=== PATIENT | female | born 1990 | race Hispanic/Latino ===

== ENCOUNTER 2018-06-09 12:33 | Emergency (ER) | payer OTHER ==
--- NOTE | 2018-06-09 12:44 | Emergency Department Report ---
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 ED Disposition for MSE Condition: Stable
--- NOTE | 2018-06-09 13:41 | Emergency Department Report ---
ED General Adult HPI - General Chief complaint: Back Pain/Injury Stated complaint: BACK/R WRIST PAIN Time Seen by Provider: 06/09/18 12:39 Source: patient Mode of arrival: Ambulatory Limitations: No Limitations - History of Present Illness Initial comments: Pt is a 28 yo female who presents to the ED with c/o chronic pain. Pt reports that she had "MRI in [place], [place] torn ligament in the right thumb," pt reports she was supposed to have surgery and did not follow up. Also, pt has chronic lower back pain, pt reports she is supposed to be in physical therapy but has not followed up. Denies any previous fx of the spine. Pt states she is part of a [employer] and travels around frequently. Pt states she has been to several ERs before for her chronic pain. She denies any new injury, no new fall, no new trauma. She denies any numbness or weakness. She is ambulatory without difficulty. pt vitals are stable. Severity scale (0 -10): 8 - Related Data Previous Rx's Medication Instructions Recorded Last Taken Type Cyclobenzaprine HCl [Flexeril 5 MG 5 mg PO QHS PRN #7 tablet 06/09/18 Unknown Rx TAB] Naproxen 375 mg PO BID PRN #20 tablet. 06/09/18 Unknown Rx Allergies Allergy/AdvReac Type Severity Reaction Status Date / Time Penicillins Allergy Rash Verified 06/09/18 12:35 ED Review of Systems ROS: Stated complaint: BACK/R WRIST PAIN Other details as noted in HPI Comment: All other systems reviewed and negative ED Past Medical Hx - Past Medical History Hx Asthma: Yes Additional medical history: ovarian cysts, PID, - Surgical History Past Surgical History?: No - Social History Smoking Status: Never Smoker Substance Use Type: Alcohol - Medications Home Medications: Home Medications Medication Instructions Recorded Confirmed Last Taken Type Cyclobenzaprine HCl [Flexeril 5 MG 5 mg PO QHS PRN #7 tablet 06/09/18 Unknown Rx TAB] Naproxen 375 mg PO BID PRN #20 tablet. 06/09/18 Unknown Rx ED Physical Exam - General Limitations: No Limitations General appearance: alert, in no apparent distress - Head Head exam: Present: atraumatic, normocephalic - Eye Eye exam: Present: normal appearance - ENT ENT exam: Present: mucous membranes moist - Neck Neck exam: Present: normal inspection, full ROM. Absent: tenderness, meningismus - Respiratory Respiratory exam: Present: normal lung sounds bilaterally. Absent: respiratory distress, wheezes, rales, rhonchi, stridor, chest wall tenderness, accessory muscle use, decreased breath sounds, prolonged expiratory - Cardiovascular Cardiovascular Exam: Present: regular rate, normal rhythm, normal heart sounds. Absent: systolic murmur, diastolic murmur, rubs, gallop - Extremities Exam Extremities exam: Present: normal inspection, full ROM (she has FROM of all the digits including the thumb of the right hand, flexion/extension/abduction/adduction are all intact of the right thumb, neurovascularly intact) - Back Exam Back exam: Present: normal inspection, full ROM, paraspinal tenderness (mild bilateral lumbar paraspinal musclar TTP, no C-spine, T-spine, or L-spine midline tenderness, no stepoffs, no deformities). Absent: vertebral tenderness - Neurological Exam Neurological exam: Present: alert, oriented X3, normal gait, other (no focal neuro deficits). Absent: motor sensory deficit - Psychiatric Psychiatric exam: Present: normal affect, normal mood ED Course Vital Signs 06/09/18 12:40 Temperature 97.6 F Pulse Rate 98 H Respiratory 18 Rate Blood Pressure 120/69 O2 Sat by Pulse 95 Oximetry ED Medical Decision Making - Medical Decision Making Pt presents with chronic pain of the lower back and right thumb. No new fall, injury, or trauma. Exam is benign, FROM, no neuro deficits. Advised pt she needed to follow up with her doctors including primary care and orthopedic. Will prescribe anti-inflammatory and short course of muscle relaxer. Advised pt not to drive or operate heavy machinery while taking muscle relaxer, advised to only take at night as needed for muscle spasms. Return to the ED for new or worsening symptoms. Critical care attestation.: If time is entered above; I have spent that time in minutes in the direct care of this critically ill patient, excluding procedure time. ED Disposition Clinical Impression: Chronic back pain Qualifiers: Back pain location: low back pain Back pain laterality: bilateral Sciatica presence: without sciatica Qualified Code(s): M54.5 - Low back pain; G89.29 - Other chronic pain Chronic hand pain Qualifiers: Laterality: right Qualified Code(s): M79.641 - Pain in right hand; G89.29 - Other chronic pain Disposition: DC-01 TO HOME OR SELFCARE Is pt being admited?: No Does the pt Need Aspirin: No Condition: Stable Instructions: Chronic Back Pain (ED), Chronic Pain (ED) Additional Instructions: Follow up with a primary care doctor and orthopedic in the next two-three days. Take the muscle relaxer at night as needed for muscle spasms. DO NOT drive or operate heavy machinery. If symptoms worsen or new symptoms return to the ED. Prescriptions: Cyclobenzaprine HCl [Flexeril 5 MG TAB] 5 mg PO QHS PRN #7 tablet PRN Reason: Muscle Spasm Naproxen 375 mg PO BID PRN #20 tablet. PRN Reason: Pain, Moderate (4-6) Referrals: [facility] [Provider Group] - 2-3 Days LONNIE CONSTANTINO MD [Staff Physician] - 2-3 Days Time of Disposition: 13:43 Print Language: POLISH
== END 2018-06-09 14:28 | disposition home or self-care (01) ==
LOC: ED 12:33
CPT/HCPCS: 99282